=== PATIENT | male | born 1965 | race Caucasian/White ===

== ENCOUNTER 2016-12-11 23:25 | Emergency (ER) | payer MEDICARE, OTHER ==
[~2016-12-11] VITALS: Ht 185.4 cm; Wt 105.0 kg
[~2016-12-11 23:25] MED LIST: BACL10TA PO; DILA8TAB4 PO; HYDR50CA PO; PRIL20CA9 PO; ROPI2 PO; ZOLO100T PO; ZYPR2.5T2 PO
[2016-12-11 23:27] VITALS: BP 164/79; PULSE 109; RESP 20; TEMP 98.9; O2SAT 100
[2016-12-12 01:40] VITALS: BP 144/82; PULSE 95; RESP 18; O2SAT 99
[2016-12-12] MEDS ORDERED: SODIUM CHLOR 0.9% 1000 ML INJ 1,000 ML IV SCH (01:48)
[2016-12-12] MEDS ORDERED: DIPHENOXYLATE/ATROPINE 2.5 MG/0.025 MG TAB PO ONE (02:00)
[2016-12-12] MEDS ORDERED: MORPHINE SULFATE 8 MG/ML INJ IV PUSH ONE (02:00)
[2016-12-12] MEDS ORDERED: ONDANSETRON HCL 4 MG/2 ML VIAL IVP ONE (02:00)
[2016-12-12] MEDS ORDERED: PROM25TA5 PO (02:21)
--- NOTE | 2016-12-12 02:21 | PD ---
HPI Chief Complaint: GI Complaint Time Seen by Provider: 01:37 Travel History International Travel<30 days: No Contact w/Intl Traveler<30days: No Traveled to known affect area: No History of Present Illness HPI 51-year-old male arrives complaining of nausea vomiting diarrhea for 2 days. Any oral intake causes vomiting. 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 He has been unable tolerate his pain medications. He denies fever. He reports chills. PFSH Past Medical History Hx Anticoagulant Therapy: No Anxiety: Yes Depression: Yes Heart Rhythm Problems: No Cancer: Yes (t cell lymphoblastic lymphoma) Cardiac Catheterization: Yes Cardiovascular Problems: Yes (HEART LOOP) High Cholesterol: No Chemotherapy: Yes (2012) Chest Pain: Yes Congestive Heart Failure: Yes (DENIES) Cerebrovascular Accident: No Diabetes: No Diminished Hearing: No Gastrointestinal Disorders: Yes (GASTROPARESIS) GERD: Yes Genitourinary: Yes Implanted Vascular Access Dvce: Yes (POWER PORT RIGHT CHEST, OMYA PORT IN BRAIN ) Kidney Stones: Yes Medical other: Yes (bilateral hip avascular necrosis) Musculoskeletal: Yes Psychiatric: Yes (PTSD ) Respiratory: No Immunizations Current: Yes Sleep Apnea: Yes (CPAP 2 L PER M) PNEUMOCCOCAL Vaccine (Year): 2 Past Surgical History Abdominal Surgery: Yes (HERNIA REPAIR, BOTOX INJECTION IN THE PYLORUS) Body Medical Devices: OMAYA RESERVOIR,POWER Port-A-Cath RIGHT CHEST Cholecystectomy: Yes (2007) Coronary Artery Bypass Graft: No Hysterectomy: No Joint Replacement: Yes (C2-T6 ) Neurologic Surgery: Yes (POWER PORT, "OMAYA PORT" FOR INTRACRANIAL CHEMOTHERAPY ) Tonsillectomy: Yes Other Surgery: Yes (TUMOR ON THALMUS GLAND) Social History Alcohol Use: No Tobacco Use: Yes (1ppd) Substance Use: Yes (marijuana) Allergies-Medications (Allergen,Severity, Reaction): Coded Allergies: No Known Allergies (Verified , 12/11/16) Reported Meds & Prescriptions Reported Meds & Active Scripts Active Lomotil (Diphenoxylate-Atropine) 2.5-0.025 Mg Tab 1 Tab PO Q6H PRN Phenergan (Promethazine HCl) 25 Mg Tab 25 Mg PO Q8HR PRN Reported Baclofen 10 Mg Tab 10 Mg PO BID Zyprexa (Olanzapine) 2.5 Mg Tab 2.5 Mg PO BID Zoloft (Sertraline HCl) 100 Mg Tab 200 Mg PO DAILY Requip (Ropinirole HCl) 2 Mg Tab 2 Mg PO HS Prilosec (Omeprazole) 20 Mg Cap 20 Mg PO BID Hydroxyzine Pamoate 50 Mg Cap 50 Mg PO HS Dilaudid (Hydromorphone HCl) 8 Mg Tab 8 Mg PO DIRECTED Review of Systems Except as stated in HPI: all other systems reviewed are Neg General / Constitutional: Positive: Chills Gastrointestinal: Positive: Nausea, Vomiting, Diarrhea Physical Exam Narrative GENERAL: 51-year-old male pleasant, ambulates with a cane SKIN: Warm and dry. HEAD: Atraumatic. Normocephalic. EYES: Pupils equal and round. No scleral icterus. No injection or drainage. ENT: No nasal bleeding or discharge. Mucous membranes pink and moist. NECK: Trachea midline. No JVD. CARDIOVASCULAR: Regular rate and rhythm. No murmur appreciated. RESPIRATORY: No accessory muscle use. Clear to auscultation. Breath sounds equal bilaterally. GASTROINTESTINAL: Abdomen soft, non-tender, nondistended. Hepatic and splenic margins not palpable. MUSCULOSKELETAL: No obvious deformities. No clubbing. No cyanosis. No edema. NEUROLOGICAL: Awake and alert. No obvious cranial nerve deficits. Motor grossly within normal limits. Normal speech. PSYCHIATRIC: Appropriate mood and affect; insight and judgment normal. Data Data Last Documented VS Vital Signs Date Time Temp Pulse Resp B/P Pulse Ox O2 Delivery O2 Flow Rate FiO2 12/12/16 02:43 99 Room Air 12/12/16 01:40 95 18 144/82 12/11/16 23:27 98.9 Vital signs reviewed Orders Iv Access Insert/Monitor (12/12/16 01:48) Oximetry (12/12/16 01:48) Ondansetron Inj (Zofran Inj) (12/12/16 02:00) Sodium Chlor 0.9% 1000 Ml Inj (Ns 1000 M (12/12/16 01:48) Morphine Inj (Morphine Inj) (12/12/16 02:00) Diphenoxylate/Atropine Tab (Lomotil Tab) (12/12/16 02:00) MDM Medical Decision Making Medical Screen Exam Complete: Yes Emergency Medical Condition: Yes Medical Record Reviewed: Yes Differential Diagnosis Gastroenteritis, viral illness, dehydration, intractable vomiting, intractable nausea, chronic pain Narrative Course Patient presents with a history of nausea vomiting diarrhea. He is unable to tolerate his pain medication due to vomiting. He has received IV fluids and antiemetics his pain has been managed. We will discharge with antiemetics and lomotil. No vomiting observed in ER. One episode diarrhea. Diagnosis Primary Impression: Nausea vomiting and diarrhea Referrals: [facility] 2 days Additional Instructions: You have a choice when it comes to health care, and we are glad that you chose [facility]. Hopefully, we have met your expectations on today's visit. You are welcome to return to [facility] at any time, as we are committed to meeting the health care needs of our community. Med/Other Pt SpecificInfo: Prescription(s) given Scripts Diphenoxylate-Atropine (Lomotil)2.5-0.025 Mg Tab1 Tab PO Q6H PRN (DIARRHEA) #6 TAB Ref 0 Prov:Maldonado Rosenberg MD 12/12/16 Promethazine (Phenergan)25 Mg Tab25 Mg PO Q8HR PRN (Nausea/Vomiting) #15 TAB Ref 0 Prov:Maldonado Rosenberg MD 12/12/16 Disposition: 01 DISCHARGE HOME Condition: Stable Maldonado Rosenberg MD Dec 12, 2016 02:21
[2016-12-12] MEDS ORDERED: LOMO2.5T PO (02:42)
[2016-12-12 02:43] VITALS: O2SAT 99
== END 2016-12-12 02:52 | disposition home or self-care (01) ==
LOC: NEPE 23:25
DX: R11.2 Nausea with vomiting, unspecified (principal); R19.7 Diarrhea, unspecified; C83.50 Lymphoblastic (diffuse) lymphoma, unspecified site; M87.9 Osteonecrosis, unspecified; F17.200 Nicotine dependence, unspecified, uncomplicated; G47.30 Sleep apnea, unspecified; Z86.79 Personal history of other diseases of the circulatory system; Z87.19 Personal history of other diseases of the digestive system; Z87.448 Personal history of other diseases of urinary system; Z87.39 Personal history of other diseases of the musculoskeletal system and connective tissue; Z86.59 Personal history of other mental and behavioral disorders
CPT/HCPCS: 96361; 96374; 96375; 99283; J2270; J2405; J7030

== ENCOUNTER 2016-12-17 21:13 | Emergency (ER) | payer MEDICARE, OTHER ==
[~2016-12-17] VITALS: Ht 185.4 cm; Wt 115.0 kg
[~2016-12-17 21:13] MED LIST changes: +LOMO2.5T PO; +PROM25TA5 PO
[2016-12-17 21:16] VITALS: BP 129/68; PULSE 80; RESP 16; TEMP 97.9; O2SAT 97
[2016-12-17] MEDS ORDERED: hydrOXYzine HCL 50 MG/ML VIAL IM ONE (23:15)
[2016-12-17] MEDS ORDERED: HYDROmorphone HCL PF 1 MG/ML VIAL IM ONE (23:15)
--- NOTE | 2016-12-17 23:46 | PD ---
HPI Chief Complaint: Back/ Neck Pain or Injury Time Seen by Provider: 23:43 Travel History International Travel<30 days: No Contact w/Intl Traveler<30days: No Traveled to known affect area: No History of Present Illness HPI 51-year-old white male presents to emergency Department with complaints of worsening chronic left hip pain. He states that he has a history of avascular necrosis and is [facility] to get [facility]. He sees pain management and gets oral Dilaudid for chronic neck and back pain. He also gets cortisone shots in his hips. He states that the pain has gotten worse the last day or 2. He comes in for evaluation. He states that he normally gets a shot of Dilaudid which helps. He denies any acute injury. Pain is moderate to severe at times. PFSH Past Medical History Hx Anticoagulant Therapy: No Anxiety: Yes Depression: Yes Heart Rhythm Problems: No Cancer: Yes (t cell lymphoblastic lymphoma) Cardiac Catheterization: Yes Cardiovascular Problems: Yes (HEART LOOP) High Cholesterol: No Chemotherapy: Yes (2012) Chest Pain: Yes Congestive Heart Failure: Yes (DENIES) Cerebrovascular Accident: No Diabetes: No Diminished Hearing: No Gastrointestinal Disorders: Yes (GASTROPARESIS) GERD: Yes Genitourinary: Yes Implanted Vascular Access Dvce: Yes (POWER PORT RIGHT CHEST, OMYA PORT IN BRAIN ) Kidney Stones: Yes Musculoskeletal: Yes Psychiatric: Yes (PTSD ) Respiratory: No Immunizations Current: Yes Sleep Apnea: Yes (CPAP 2 L PER M) PNEUMOCCOCAL Vaccine (Year): 2 Past Surgical History Abdominal Surgery: Yes (HERNIA REPAIR, BOTOX INJECTION IN THE PYLORUS) Body Medical Devices: OMAYA RESERVOIR,POWER Port-A-Cath RIGHT CHEST Cholecystectomy: Yes (2007) Coronary Artery Bypass Graft: No Hysterectomy: No Joint Replacement: Yes (C2-T6 ) Neurologic Surgery: Yes (POWER PORT, "OMAYA PORT" FOR INTRACRANIAL CHEMOTHERAPY ) Tonsillectomy: Yes Other Surgery: Yes (TUMOR ON THALMUS GLAND) Social History Alcohol Use: No Tobacco Use: Yes (1ppd) Substance Use: Yes (marijuana) Allergies-Medications (Allergen,Severity, Reaction): Coded Allergies: No Known Allergies (Verified , 12/17/16) Reported Meds & Prescriptions Reported Meds & Active Scripts Active Lomotil (Diphenoxylate-Atropine) 2.5-0.025 Mg Tab 1 Tab PO Q6H PRN Phenergan (Promethazine HCl) 25 Mg Tab 25 Mg PO Q8HR PRN Reported Baclofen 10 Mg Tab 10 Mg PO BID Zyprexa (Olanzapine) 2.5 Mg Tab 2.5 Mg PO BID Zoloft (Sertraline HCl) 100 Mg Tab 200 Mg PO DAILY Requip (Ropinirole HCl) 2 Mg Tab 2 Mg PO HS Prilosec (Omeprazole) 20 Mg Cap 20 Mg PO BID Hydroxyzine Pamoate 50 Mg Cap 50 Mg PO HS Dilaudid (Hydromorphone HCl) 8 Mg Tab 8 Mg PO DIRECTED Review of Systems Except as stated in HPI: all other systems reviewed are Neg Physical Exam Narrative GENERAL: This is a well-nourished, well-developed patient, in no apparent distress. SKIN: No rashes, ecchymoses or lesions. Warm and dry. HEAD: Atraumatic. Normocephalic. EYES: PERRL, EOMI, no discharge or injection. No scleral icterus. EARS: Clear NOSE: Nasal turbinates appear normal. THROAT: Mucosa pink and moist. Airway patent. NECK: Trachea midline. supple, moves head freely. Chronic scar from multiple surgeries LUNGS: Clear to auscultation. CV: Regular in rhythm. ABDOMEN: Soft nontender. EXT: No clubbing cyanosis or edema. Patient complains of pain in the left groin and left hip. He has decreased active range of motion but has nearly full passive range of motion. No pain in the knee, ankle or foot. He has intact sensation. Good distal pulse. Data Data Last Documented VS Vital Signs Date Time Temp Pulse Resp B/P Pulse Ox O2 Delivery O2 Flow Rate FiO2 12/17/16 21:16 97.9 80 16 129/68 97 Room Air Orders Hydromorphone Pf Inj (Dilaudid Pf Inj) (12/17/16 23:15) Hydroxyzine Hcl Inj (Vistaril Inj) (12/17/16 23:15) MDM Medical Decision Making Medical Screen Exam Complete: Yes Emergency Medical Condition: Yes Medical Record Reviewed: Yes Differential Diagnosis Differential diagnoses: Acute, chronic hip pain, avascular necrosis Narrative Course Patient's given Dilaudid 1 mg IM and 50 g of Vistaril IM. This acute exacerbation of chronic left hip pain Diagnosis Primary Impression: acute exacerbation of chronic left hip pain Patient Instructions: Narcotic given in the ED, General Instructions Additional Instructions: Rest. [facility] Med/Other Pt SpecificInfo: No Change to Meds Disposition: 01 DISCHARGE HOME Condition: Stable Ky Neumann Dec 17, 2016 23:46
== END 2016-12-18 00:10 | disposition home or self-care (01) ==
LOC: NEPB 21:13
DX: M25.552 Pain in left hip (principal); G89.29 Other chronic pain; Z87.442 Personal history of urinary calculi; F43.10 Post-traumatic stress disorder, unspecified; G47.30 Sleep apnea, unspecified
CPT/HCPCS: 96372; 99283; J1170; J3410

== ENCOUNTER 2017-01-10 10:29 | Emergency (ER) | payer OTHER, MEDICARE ==
[2017-01-10 10:31] VITALS: BP 135/93; PULSE 74; RESP 20; TEMP 97.8; O2SAT 99
== END 2017-01-10 11:15 | disposition left against medical advice (07) ==
LOC: NED 10:29
DX: R68.89 Other general symptoms and signs (principal); W19.XXXA Unspecified fall, initial encounter; Y92.9 Unspecified place or not applicable; Y99.9 Unspecified external cause status
CPT/HCPCS: 99281

== ENCOUNTER 2017-02-06 22:56 | Emergency (ER) | payer MEDICARE, OTHER ==
[~2017-02-06] VITALS: Ht 185.4 cm; Wt 120.0 kg
[2017-02-06 23:02] VITALS: BP 139/86; PULSE 78; RESP 16; TEMP 98.7; O2SAT 97
[2017-02-07] MEDS ORDERED: hydrOXYzine HCL 50 MG/ML VIAL IM ONE (00:30)
[2017-02-07] MEDS ORDERED: HYDROmorphone HCL PF 1 MG/ML VIAL IM ONE (00:30)
--- NOTE | 2017-02-07 00:30 | PD ---
HPI Chief Complaint: Pain: Acute or Chronic Time Seen by Provider: 00:22 Travel History International Travel<30 days: No Contact w/Intl Traveler<30days: No Traveled to known affect area: No History of Present Illness HPI 51-year-old white male presents to emergency department for evaluation of acute exacerbation of chronic right hip pain. This is a patient well-known to myself from prior visits. The patient states that he tripped on an electrical cord earlier this evening twisting and having a near full. He is currently in pain management. He typically takes 8 mg of Dilaudid at a time. He also has a history of avascular necrosis and is awaiting hip replacement. He denies falling to the ground. He states the pain is moderate to severe. He states that the typically gets a shot of Dilaudid which alleviates his pain. History of chronic neck and back pain as well. PFSH Past Medical History Hx Anticoagulant Therapy: No Anxiety: Yes Depression: Yes Heart Rhythm Problems: No Cancer: Yes (t cell lymphoblastic lymphoma) Cardiac Catheterization: Yes Cardiovascular Problems: Yes (HEART LOOP) High Cholesterol: No Chemotherapy: Yes (2012) Chest Pain: Yes Congestive Heart Failure: Yes (DENIES) Cerebrovascular Accident: No Diabetes: No Diminished Hearing: No Gastrointestinal Disorders: Yes (GASTROPARESIS) GERD: Yes Genitourinary: Yes Implanted Vascular Access Dvce: Yes (POWER PORT RIGHT CHEST, OMYA PORT IN BRAIN ) Kidney Stones: Yes Musculoskeletal: Yes Psychiatric: Yes (PTSD ) Respiratory: No Immunizations Current: Yes Sleep Apnea: Yes (CPAP 2 L PER M) PNEUMOCCOCAL Vaccine (Year): 2 Past Surgical History Abdominal Surgery: Yes (HERNIA REPAIR, BOTOX INJECTION IN THE PYLORUS) Body Medical Devices: OMAYA RESERVOIR,POWER Port-A-Cath RIGHT CHEST Cholecystectomy: Yes (2007) Coronary Artery Bypass Graft: No Hysterectomy: No Joint Replacement: Yes (C2-T6 ) Neurologic Surgery: Yes (POWER PORT, "OMAYA PORT" FOR INTRACRANIAL CHEMOTHERAPY ) Tonsillectomy: Yes Other Surgery: Yes (TUMOR ON THALMUS GLAND) Family History Family Myocardial Infarction: Yes (GRANDMOTHER) Social History Alcohol Use: No Tobacco Use: Yes (1ppd) Substance Use: Yes (marijuana) Allergies-Medications (Allergen,Severity, Reaction): Coded Allergies: No Known Allergies (Verified , 02/06/17) Reported Meds & Prescriptions Reported Meds & Active Scripts Active Lomotil (Diphenoxylate-Atropine) 2.5-0.025 Mg Tab 1 Tab PO Q6H PRN Phenergan (Promethazine HCl) 25 Mg Tab 25 Mg PO Q8HR PRN Reported Baclofen 10 Mg Tab 10 Mg PO BID Zyprexa (Olanzapine) 2.5 Mg Tab 2.5 Mg PO BID Zoloft (Sertraline HCl) 100 Mg Tab 200 Mg PO DAILY Requip (Ropinirole HCl) 2 Mg Tab 2 Mg PO HS Prilosec (Omeprazole) 20 Mg Cap 20 Mg PO BID Hydroxyzine Pamoate 50 Mg Cap 50 Mg PO HS Dilaudid (Hydromorphone HCl) 8 Mg Tab 8 Mg PO DIRECTED Review of Systems Except as stated in HPI: all other systems reviewed are Neg General / Constitutional: No: Fever, Chills HENT: Positive: Neck Stiffness, Neck Pain (chronic) Cardiovascular: No: Chest Pain or Discomfort, Palpitations Respiratory: No: Cough Gastrointestinal: No: Abdominal Pain, Loss of Appetite Genitourinary: No: Frequency, Dysuria Musculoskeletal: Positive: Arthralgias, Limited ROM, Pain Physical Exam Narrative GENERAL: This is a well-nourished, well-developed patient, in no apparent distress. SKIN: No rashes, ecchymoses or lesions. Warm and dry. HEAD: Atraumatic. Normocephalic. EYES: PERRL, EOMI, no discharge or injection. No scleral icterus. EARS: Clear NOSE: Nasal turbinates appear normal. THROAT: Mucosa pink and moist. Airway patent. NECK: Trachea midline. supple, moves head freely. LUNGS: Clear to auscultation. CV: Regular in rhythm. ABDOMEN: Soft nontender. EXT: No clubbing cyanosis or edema. Patient complains of pain in the right hip. He has decreased range of motion due to pain. No erythema, warmth or swelling. He has intact sensation distally. Good dorsalis pedis pulses. Data Data Last Documented VS Vital Signs Date Time Temp Pulse Resp B/P Pulse Ox O2 Delivery O2 Flow Rate FiO2 02/06/17 23:02 98.7 78 16 139/86 97 Room Air Orders Hydromorphone Pf Inj (Dilaudid Pf Inj) (02/07/17 00:30) Hydroxyzine Hcl Inj (Vistaril Inj) (02/07/17 00:30) MDM Medical Decision Making Medical Screen Exam Complete: Yes Emergency Medical Condition: Yes Medical Record Reviewed: Yes Differential Diagnosis MDM: High Differential diagnoses: Fracture, sprain, strain, dislocation, contusion, neurovascular injury, acute exacerbation of chronic pain Narrative Course Patient has acute exacerbation of chronic hip pain. Patient's given Dilaudid 1 mg IM and Vistaril 50 g IM. Diagnosis Primary Impression: acute exacerbation of chronic right hip pain Patient Instructions: Narcotic given in the ED, General Instructions Additional Instructions: Rest. Contact your doctor in the morning regarding your exacerbation of chronic pain. Return to the ER for emergencies. Med/Other Pt SpecificInfo: No Meds Exist/No RX given Disposition: 01 DISCHARGE HOME Condition: Stable Ky Neumann February 07, 2017 00:30
[2017-02-07 00:56] VITALS: BP 132/78
== END 2017-02-07 01:03 | disposition home or self-care (01) ==
LOC: NEPD 22:56
DX: G89.29 Other chronic pain (principal); M25.551 Pain in right hip; F17.210 Nicotine dependence, cigarettes, uncomplicated; Z79.899 Other long term (current) drug therapy
CPT/HCPCS: 96372; 99283; J1170; J3410

== ENCOUNTER 2017-02-09 03:08 | Emergency (ER) | payer OTHER, MEDICARE ==
[~2017-02-09] VITALS: Ht 185.4 cm; Wt 120.0 kg
[2017-02-09 03:12] VITALS: BP 133/79; PULSE 66; RESP 16; TEMP 97.6; O2SAT 100
--- NOTE | 2017-02-09 03:27 | PD ---
HPI Chief Complaint: Pain: Acute or Chronic Time Seen by Provider: 03:26 Travel History International Travel<30 days: No Contact w/Intl Traveler<30days: No Traveled to known affect area: No History of Present Illness HPI 51-year-old male with long-standing history of right hip pain and lower back pain, and avascular necrosis of the right hip, presents to emergency department today for evaluation of persistent, exacerbation of pain. Patient states he was seen here couple days ago for his right lower back/hip pain after he "tweaked it." Patient was seen and evaluated and given IM Dilaudid. Patient does take oral Dilaudid 8 mg at a time as needed for pain. Patient denies any new injury. No focal deficits or weakness. Patient is already established with pain management. He has no other symptoms to report at this time. PFSH Past Medical History Hx Anticoagulant Therapy: No Anxiety: Yes Depression: Yes Heart Rhythm Problems: No Cancer: Yes (t cell lymphoblastic lymphoma) Cardiac Catheterization: Yes Cardiovascular Problems: Yes (HEART LOOP) High Cholesterol: No Chemotherapy: Yes (2012) Chest Pain: Yes Congestive Heart Failure: Yes (DENIES) Cerebrovascular Accident: No Diabetes: No Diminished Hearing: No Gastrointestinal Disorders: Yes (GASTROPARESIS) GERD: Yes Genitourinary: Yes Implanted Vascular Access Dvce: Yes (POWER PORT RIGHT CHEST, OMYA PORT IN BRAIN ) Kidney Stones: Yes Musculoskeletal: Yes Psychiatric: Yes (PTSD ) Respiratory: No Immunizations Current: Yes Sleep Apnea: Yes (CPAP 2 L PER M) PNEUMOCCOCAL Vaccine (Year): 2 Past Surgical History Abdominal Surgery: Yes (HERNIA REPAIR, BOTOX INJECTION IN THE PYLORUS) Body Medical Devices: OMAYA RESERVOIR,POWER Port-A-Cath RIGHT CHEST Cholecystectomy: Yes (2007) Coronary Artery Bypass Graft: No Hysterectomy: No Joint Replacement: Yes (C2-T6 ) Neurologic Surgery: Yes (POWER PORT, "OMAYA PORT" FOR INTRACRANIAL CHEMOTHERAPY ) Tonsillectomy: Yes Other Surgery: Yes (TUMOR ON THALMUS GLAND) Social History Alcohol Use: No Tobacco Use: Yes (1ppd) Substance Use: Yes (marijuana) Allergies-Medications (Allergen,Severity, Reaction): Coded Allergies: No Known Allergies (Verified , 02/09/17) Reported Meds & Prescriptions Reported Meds & Active Scripts Active Lomotil (Diphenoxylate-Atropine) 2.5-0.025 Mg Tab 1 Tab PO Q6H PRN Phenergan (Promethazine HCl) 25 Mg Tab 25 Mg PO Q8HR PRN Reported Baclofen 10 Mg Tab 10 Mg PO BID Zyprexa (Olanzapine) 2.5 Mg Tab 2.5 Mg PO BID Zoloft (Sertraline HCl) 100 Mg Tab 200 Mg PO DAILY Requip (Ropinirole HCl) 2 Mg Tab 2 Mg PO HS Prilosec (Omeprazole) 20 Mg Cap 20 Mg PO BID Hydroxyzine Pamoate 50 Mg Cap 50 Mg PO HS Dilaudid (Hydromorphone HCl) 8 Mg Tab 8 Mg PO DIRECTED Review of Systems Except as stated in HPI: all other systems reviewed are Neg Physical Exam Narrative GENERAL: Well-nourished, well-developed male patient, ambulatory with cane assistance, in no acute distress SKIN: Focused skin assessment warm/dry. HEAD: Normocephalic. EYES: No scleral icterus. No injection or drainage. NECK: Supple, trachea midline. No JVD or lymphadenopathy. CARDIOVASCULAR: Regular rate and rhythm without murmurs, gallops, or rubs. RESPIRATORY: Breath sounds equal bilaterally. No accessory muscle use. GASTROINTESTINAL: Abdomen soft, non-tender, nondistended. MUSCULOSKELETAL: No cyanosis, or edema. Patient reports tenderness with flexion of the right hip however patient is able to demonstrate full range of motion. Distal pulses are palpable. Cap refills normal limits. BACK: Nontender without obvious deformity. No CVA tenderness. Data Data Last Documented VS Vital Signs Date Time Temp Pulse Resp B/P Pulse Ox O2 Delivery O2 Flow Rate FiO2 02/09/17 03:12 97.6 66 16 133/79 100 Orders Dexamethasone Inj (Decadron Inj) (02/09/17 03:30) Ketorolac Inj (Toradol Inj) (02/09/17 03:30) [facility] Medical Decision Making Medical Screen Exam Complete: Yes Emergency Medical Condition: Yes Medical Record Reviewed: Yes Differential Diagnosis Exacerbation of chronic hip pain versus muscle strain versus spasm versus sprain Narrative Course 51-year-old male presents to emergency department for evaluation of left hip pain. Patient is requesting Dilaudid by name stating that he has gotten injections of this in the past. Patient is given IM Toradol and Decadron. He is advised to follow-up with his scene painter. He agrees to return immediately with any acute worsening of symptoms. Diagnosis Primary Impression: Chronic hip pain Qualified Code: M25.551 - Chronic hip pain, right Referrals: Primary Care Physician Patient Instructions: General Instructions, Hip Pain (ED) Additional Instructions: Continue pain medication as already prescribed Follow-up with a primary care provider Return immediately with any acute worsening of symptoms Med/Other Pt SpecificInfo: No Change to Meds Disposition: 01 DISCHARGE HOME Condition: Stable Krystyna Keating February 09, 2017 03:27
[2017-02-09] MEDS ORDERED: KETOROLAC TROMETHAMINE 60 MG/2 ML (IM) VIAL IM ONE (03:30)
[2017-02-09] MEDS ORDERED: DEXAMETHASONE SOD PHOS 4 MG/ML VIAL IM ONE (03:30)
== END 2017-02-09 04:19 | disposition home or self-care (01) ==
LOC: NEPD 03:08
DX: G89.29 Other chronic pain (principal); M25.551 Pain in right hip; Z79.899 Other long term (current) drug therapy
CPT/HCPCS: 96372; 99283; J1100; J1885

== ENCOUNTER 2017-03-15 07:27 | Emergency (ER) | payer OTHER, MEDICARE ==
[~2017-03-15] VITALS: Ht 185.4 cm; Wt 118.0 kg
[2017-03-15 07:29] VITALS: BP 147/75; PULSE 80; RESP 20; TEMP 97.7; O2SAT 100
--- NOTE | 2017-03-15 07:42 | PD ---
HPI Chief Complaint: Pain: Acute or Chronic Time Seen by Provider: 07:40 Travel History International Travel<30 days: No Contact w/Intl Traveler<30days: No Traveled to known affect area: No History of Present Illness HPI 51-year-old male established with the [facility], presents the emergency Department with complaints of increased right hip pain with history of avascular necrosis. Patient was seen twice last month for similar complaints. At one visit he was given Dilaudid IM and Vistaril IM, at the second visit he was given Decadron IM and Toradol IM. Patient is established with the pain management group. Patient currently takes 8 mg of oral Dilaudid times a day, as well as baclofen. He states it flared up yesterday. He is here seeking pain medication. He states he is having increased muscle spasms in his back. He has a history of a fused neck as well as the avascular necrosis. He has no known drug allergies. PFSH Past Medical History Hx Anticoagulant Therapy: No Anxiety: Yes Depression: Yes Heart Rhythm Problems: No Cancer: Yes (t cell lymphoblastic lymphoma) Cardiac Catheterization: Yes Cardiovascular Problems: Yes (LOOP RECORDER) High Cholesterol: No Chemotherapy: Yes (5 YEARS AGO REMISSION SINCE 2012) Chest Pain: Yes Congestive Heart Failure: Yes (DENIES) Cerebrovascular Accident: No Diabetes: No Diminished Hearing: No Gastrointestinal Disorders: Yes (GASTROPARESIS) GERD: Yes Genitourinary: Yes Implanted Vascular Access Dvce: Yes (POWER PORT RIGHT CHEST, OMYA PORT IN BRAIN ) Kidney Stones: Yes Musculoskeletal: Yes Psychiatric: Yes (PTSD ) Respiratory: No Immunizations Current: Yes Sleep Apnea: Yes (CPAP 2 L PER M) PNEUMOCCOCAL Vaccine (Year): 2 Past Surgical History Abdominal Surgery: Yes (HERNIA REPAIR, BOTOX INJECTION IN THE PYLORUS) Body Medical Devices: OMAYA RESERVOIR,POWER Port-A-Cath RIGHT CHEST Cholecystectomy: Yes (2007) Coronary Artery Bypass Graft: No Hysterectomy: No Joint Replacement: Yes (C2-T6 ) Neurologic Surgery: Yes (POWER PORT, "OMAYA PORT" FOR INTRACRANIAL CHEMOTHERAPY ) Tonsillectomy: Yes Other Surgery: Yes (TUMOR ON THALMUS GLAND) Social History Alcohol Use: No Tobacco Use: Yes (1ppd) Substance Use: Yes (marijuana) Allergies-Medications (Allergen,Severity, Reaction): Coded Allergies: No Known Allergies (Verified , 02/09/17) Reported Meds & Prescriptions Reported Meds & Active Scripts Active Lomotil (Diphenoxylate-Atropine) 2.5-0.025 Mg Tab 1 Tab PO Q6H PRN Phenergan (Promethazine HCl) 25 Mg Tab 25 Mg PO Q8HR PRN Reported Baclofen 10 Mg Tab 10 Mg PO BID Zyprexa (Olanzapine) 2.5 Mg Tab 2.5 Mg PO BID Zoloft (Sertraline HCl) 100 Mg Tab 200 Mg PO DAILY Requip (Ropinirole HCl) 2 Mg Tab 2 Mg PO HS Prilosec (Omeprazole) 20 Mg Cap 20 Mg PO BID Hydroxyzine Pamoate 50 Mg Cap 50 Mg PO HS Dilaudid (Hydromorphone HCl) 8 Mg Tab 8 Mg PO DIRECTED Review of Systems Except as stated in HPI: all other systems reviewed are Neg General / Constitutional: No: Fever Eyes: No: Visual changes HENT: No: Headaches Cardiovascular: No: Chest Pain or Discomfort Respiratory: No: Shortness of Breath Gastrointestinal: No: Abdominal Pain Genitourinary: No: Dysuria Musculoskeletal: Positive: Arthralgias, Limited ROM, Pain (see history present illness.) Skin: No Rash Neurologic: No: Weakness Psychiatric: No: Depression Endocrine: No: Polydipsia Hematologic/Lymphatic: No: Easy Bruising Physical Exam Narrative GENERAL: Patient appears in no acute distress. SKIN: Warm and dry. Normal color. Normal turgor. HEAD: Atraumatic. Normocephalic. EYES: Pupils equal and round. No scleral icterus. No injection or drainage. ENT: No nasal bleeding or discharge. Mucous membranes pink and moist. NECK: Trachea midline. No JVD. CARDIOVASCULAR: Regular rate and rhythm. RESPIRATORY: No accessory muscle use. Clear to auscultation. Breath sounds equal bilaterally. MUSCULOSKELETAL: Extremities without clubbing, cyanosis, or edema. No obvious deformities. Patient has decreased range of motion in the right hip consistent with history. Patient has normal pulses distally. NEUROLOGICAL: Awake and alert. No obvious cranial nerve deficits. Motor grossly within normal limits. Five out of 5 muscle strength in the arms and legs. Normal speech. PSYCHIATRIC: Appropriate mood and affect; insight and judgment normal. Data Data Last Documented VS Vital Signs Date Time Temp Pulse Resp B/P Pulse Ox O2 Delivery O2 Flow Rate FiO2 03/15/17 07:29 97.7 80 20 147/75 100 Room Air MDM Medical Decision Making Medical Screen Exam Complete: Yes Emergency Medical Condition: Yes Medical Record Reviewed: Yes Differential Diagnosis Acute on chronic right hip pain. History of avascular necrosis. Drug-seeking behavior. Narrative Course Patient is medically stable at time of exam. Patient is driving himself. Patient will be given Decadron 10 mg IM as well as 60 mg Toradol IM. Patient is given a prescription for Norflex 100 mg twice a day #10. Patient is to follow-up with his pain specialist on Friday or return to the ED as needed. Diagnosis Primary Impression: Chronic hip pain Qualified Code: M25.551 - Chronic hip pain, right Additional Impressions: Chronic neck pain Chronic back pain Qualified Code: M54.5 - Chronic bilateral low back pain without sciatica Referrals: Pain Management Patient Instructions: General Instructions, Muscle Spasm (ED) Additional Instructions: Patient is medically stable at time of exam. Patient is driving himself. Patient will be given Decadron 10 mg IM as well as 60 mg Toradol IM. Patient is given a prescription for Norflex 100 mg twice a day #10. Patient is to follow-up with his pain specialist on Friday or return to the ED as needed. Med/Other Pt SpecificInfo: Prescription(s) given Disposition: 01 DISCHARGE HOME Condition: Stable Alphonso Arriaga Mar 15, 2017 07:42
[2017-03-15] MEDS ORDERED: ORPH100T99 PO (07:50)
[2017-03-15] MEDS ORDERED: DEXAMETHASONE SOD PHOS 20 MG/5 ML VIAL IM ONE (08:00)
[2017-03-15] MEDS ORDERED: KETOROLAC TROMETHAMINE 60 MG/2 ML (IM) VIAL IM ONE (08:00)
== END 2017-03-15 08:19 | disposition home or self-care (01) ==
LOC: NEPK 07:27
DX: M25.551 Pain in right hip (principal); M54.2 Cervicalgia; M54.5 Low back pain; G89.29 Other chronic pain; K21.9 Gastro-esophageal reflux disease without esophagitis; Z87.442 Personal history of urinary calculi; F43.10 Post-traumatic stress disorder, unspecified; G47.30 Sleep apnea, unspecified; F17.210 Nicotine dependence, cigarettes, uncomplicated
CPT/HCPCS: 96372; 99284; J1100; J1885

== ENCOUNTER 2017-04-20 23:16 | Emergency (ER) | payer OTHER, MEDICARE ==
[~2017-04-20 23:16] MED LIST changes: +ORPH100T99 PO
[2017-04-20 23:18] VITALS: BP 140/67; PULSE 84; RESP 16; TEMP 98.2; O2SAT 97
--- NOTE | 2017-04-21 00:11 | PD ---
HPI Chief Complaint: Hip pain Time Seen by Provider: 23:48 Travel History International Travel<30 days: No Contact w/Intl Traveler<30days: No Traveled to known affect area: No History of Present Illness HPI 51yo M with PMH of chronic neck and back pain, chronic bilateral hip pain with history of AVN presents to the ED requesting pain medication. State he twisted his right hip today and has pain in right hip that radiates to right inner thigh. Pain is worst with movement. Denies any fever, fall, trauma, chest pain , sob, n/v, abdominal pain, focal weakness or numbness. Pt states he ran out of his dilaudid 8mg PO and usually takes that for pain. Pt has established pain management physician. He states he usually gets dilaudid and wants it in injection form. I reviewed his records and he has been here multiple times for this before. PFSH Past Medical History Hx Anticoagulant Therapy: No Anxiety: Yes Depression: Yes Heart Rhythm Problems: No Cancer: Yes (t cell lymphoblastic lymphoma) Cardiac Catheterization: Yes Cardiovascular Problems: Yes (LOOP RECORDER) High Cholesterol: No Chemotherapy: Yes (5 YEARS AGO REMISSION SINCE 2012) Chest Pain: Yes Congestive Heart Failure: Yes (DENIES) Cerebrovascular Accident: No Diabetes: No Diminished Hearing: No Gastrointestinal Disorders: Yes (GASTROPARESIS) GERD: Yes Genitourinary: Yes Implanted Vascular Access Dvce: Yes ( OMYA PORT IN BRAIN) Kidney Stones: Yes Musculoskeletal: Yes Psychiatric: Yes (PTSD ) Respiratory: No Immunizations Current: Yes Sleep Apnea: Yes (CPAP 2 L PER M) PNEUMOCCOCAL Vaccine (Year): 2 Past Surgical History Abdominal Surgery: Yes (HERNIA REPAIR, BOTOX INJECTION IN THE PYLORUS) Body Medical Devices: OMAYA RESERVOIR,POWER Port-A-Cath RIGHT CHEST Cholecystectomy: Yes (2007) Coronary Artery Bypass Graft: No Hysterectomy: No Joint Replacement: Yes (C2-T6 ) Neurologic Surgery: Yes (POWER PORT, "OMAYA PORT" FOR INTRACRANIAL CHEMOTHERAPY ) Tonsillectomy: Yes Other Surgery: Yes (TUMOR ON THALMUS GLAND) Social History Alcohol Use: No Tobacco Use: Yes (1ppd) Substance Use: Yes (marijuana occasionally) Allergies-Medications (Allergen,Severity, Reaction): Coded Allergies: No Known Allergies (Verified , 04/20/17) Reported Meds & Prescriptions Reported Meds & Active Scripts Active Orphenadrine CR (Orphenadrine Citrate) 100 Mg Tab 100 Mg PO Q12HR Reported Omeprazole 20 Mg Tab 20 Mg PO DAILY Baclofen 10 Mg Tab 10 Mg PO BID Zyprexa (Olanzapine) 2.5 Mg Tab 2.5 Mg PO BID Zoloft (Sertraline HCl) 100 Mg Tab 200 Mg PO DAILY Requip (Ropinirole HCl) 2 Mg Tab 2 Mg PO HS Hydroxyzine Pamoate 50 Mg Cap 50 Mg PO HS Dilaudid (Hydromorphone HCl) 8 Mg Tab 8 Mg PO DIRECTED Review of Systems Except as stated in HPI: all other systems reviewed are Neg Physical Exam Narrative GENERAL: 51yo M not in distress. SKIN: Focused skin assessment warm/dry. HEAD: Atraumatic. Normocephalic. EYES: Pupils equal and round. No scleral icterus. No injection or drainage. ENT: No nasal bleeding or discharge. Mucous membranes pink and moist. NECK: Trachea midline. No JVD. CARDIOVASCULAR: Regular rate and rhythm. No murmur appreciated. RESPIRATORY: No accessory muscle use. Clear to auscultation. Breath sounds equal bilaterally. GASTROINTESTINAL: Abdomen soft, non-tender, nondistended. MUSCULOSKELETAL: Right hip: No signs of ecchymoses, erythema. FROM and pain is worst with abduction of right hip. NEUROLOGICAL: Awake and alert. No obvious cranial nerve deficits. Motor grossly within normal limits. Muscle strength 5/5 in all extremities. Sensation intact. Normal speech. PSYCHIATRIC: Appropriate mood and affect; insight and judgment normal. Data Data Last Documented VS Vital Signs Date Time Temp Pulse Resp B/P Pulse Ox O2 Delivery O2 Flow Rate FiO2 04/20/17 23:18 98.2 84 16 140/67 97 Room Air Orders Ketorolac Inj (Toradol Inj) (04/21/17 00:15) MDM Medical Decision Making Medical Screen Exam Complete: Yes Emergency Medical Condition: Yes Differential Diagnosis Chronic hip pain vs. malingering vs. drug seeking Narrative Course 51yo M with chronic hip pain here requesting dilaudid. Pt has been coming frequently for this. No new trauma. Pt given toradol IM. I was informed by the nurse that pt had left before my reevaluation. Diagnosis Primary Impression: Chronic hip pain Qualified Code: M25.551 - Chronic hip pain, right Patient Instructions: General Instructions Departure Forms: Tests/Procedures Additional Instructions: Please return to the ED if symptoms worsen. Med/Other Pt SpecificInfo: No Change to Meds Disposition: 01 DISCHARGE HOME Condition: Stable Mere Tamayo DO Apr 21, 2017 00:11
[2017-04-21] MEDS ORDERED: OMEP20TA PO (00:12)
[2017-04-21] MEDS ORDERED: KETOROLAC TROMETHAMINE 60 MG/2 ML (IM) VIAL IM ONE (00:15)
== END 2017-04-21 02:32 | disposition home or self-care (01) ==
LOC: NEPC 23:16
DX: M25.551 Pain in right hip (principal); G89.29 Other chronic pain; Z76.0 Encounter for issue of repeat prescription; F43.10 Post-traumatic stress disorder, unspecified; K21.9 Gastro-esophageal reflux disease without esophagitis; Z87.442 Personal history of urinary calculi; F17.210 Nicotine dependence, cigarettes, uncomplicated; X50.0XXA Overexertion from strenuous movement or load, initial encounter; Y93.9 Activity, unspecified; Y92.9 Unspecified place or not applicable
CPT/HCPCS: 96372; 99284; J1885

== ENCOUNTER 2017-08-24 21:36 | Emergency (ER) | payer OTHER, MEDICARE ==
[~2017-08-24] VITALS: Ht 185.4 cm; Wt 120.0 kg
[~2017-08-24 21:36] MED LIST changes: -LOMO2.5T PO; +OMEP20TA93 PO; +ORPH100T2 PO; -ORPH100T99 PO; -PRIL20CA9 PO; -PROM25TA5 PO
[2017-08-24 21:39] VITALS: BP 147/73; PULSE 82; RESP 16; TEMP 97.6; O2SAT 96
[2017-08-24] MEDS ORDERED: DILA2TAB4 PO (22:29)
[2017-08-24] MEDS ORDERED: ZOFR4TAB3 SL (22:31)
--- NOTE | 2017-08-24 22:31 | PD ---
HPI Chief Complaint: Fall Time Seen by Provider: 22:10 Travel History International Travel<30 days: No Contact w/Intl Traveler<30days: No Traveled to known affect area: No History of Present Illness HPI The patient's 51 years old and has chronic back pain. 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 He reports finishing off the remainder of his monthly pain prescription yesterday. He takes Dilaudid for pain. PFSH Past Medical History Hx Anticoagulant Therapy: No Anxiety: Yes (PTSD) Depression: Yes Heart Rhythm Problems: No Cancer: Yes (t cell lymphoblastic lymphoma) Cardiac Catheterization: Yes Cardiovascular Problems: Yes (LOOP RECORDER) High Cholesterol: No Chemotherapy: Yes (5 YEARS AGO REMISSION SINCE 2012) Chest Pain: Yes Congestive Heart Failure: Yes (DENIES) Cerebrovascular Accident: No Diabetes: No Diminished Hearing: No Gastrointestinal Disorders: Yes (GASTROPARESIS) GERD: Yes Genitourinary: Yes Heparin Induced Thrombocytopen: No Implanted Vascular Access Dvce: Yes ( OMYA PORT IN BRAIN) Kidney Stones: Yes Musculoskeletal: Yes Psychiatric: Yes (PTSD ) Respiratory: No Immunizations Current: Yes Sleep Apnea: Yes (CPAP 2 L PER M) Tetanus Vaccination: < 5 Years Influenza Vaccination: Yes PNEUMOCCOCAL Vaccine (Year): 2 Past Surgical History Abdominal Surgery: Yes (HERNIA REPAIR, BOTOX INJECTION IN THE PYLORUS) Body Medical Devices: OMAYA RESERVOIR,POWER Port-A-Cath RIGHT CHEST Cholecystectomy: Yes (2007) Coronary Artery Bypass Graft: No Hysterectomy: No Joint Replacement: Yes (C2-T6 ) Neurologic Surgery: Yes (POWER PORT, "OMAYA PORT" FOR INTRACRANIAL CHEMOTHERAPY ) Tonsillectomy: Yes Other Surgery: Yes (TUMOR ON THALMUS GLAND) Family History Family Myocardial Infarction: Yes (GRANDMOTHER) Social History Alcohol Use: No Tobacco Use: Yes (1ppd) Substance Use: Yes (marijuana occasionally) Allergies-Medications (Allergen,Severity, Reaction): Coded Allergies: No Known Allergies (Verified Adverse Reaction, Unknown, 08/24/17) Reported Meds & Prescriptions Reported Meds & Active Scripts Active Orphenadrine CR (Orphenadrine Citrate) 100 Mg Tab 100 Mg PO Q12HR Reported Omeprazole 20 Mg Tab 20 Mg PO DAILY Baclofen 10 Mg Tab 10 Mg PO BID Zyprexa (Olanzapine) 2.5 Mg Tab 2.5 Mg PO BID Zoloft (Sertraline HCl) 100 Mg Tab 200 Mg PO DAILY Requip (Ropinirole HCl) 2 Mg Tab 2 Mg PO HS Hydroxyzine Pamoate 50 Mg Cap 50 Mg PO HS Dilaudid (Hydromorphone HCl) 8 Mg Tab 8 Mg PO DIRECTED Review of Systems Except as stated in HPI: all other systems reviewed are Neg General / Constitutional: No: Fever Musculoskeletal: Positive: Pain Physical Exam Narrative GENERAL: 51 yo M, mild distress 2/2 pain SKIN: Warm and dry. HEAD: Atraumatic. Normocephalic. EYES: Pupils equal and round. No scleral icterus. No injection or drainage. ENT: No nasal bleeding or discharge. Mucous membranes pink and moist. NECK: Trachea midline. No JVD. CARDIOVASCULAR: Regular rate and rhythm. RESPIRATORY: No accessory muscle use. Clear to auscultation. Breath sounds equal bilaterally. GASTROINTESTINAL: Abdomen soft, non-tender, nondistended. Hepatic and splenic margins not palpable. MUSCULOSKELETAL: Extremities without clubbing, cyanosis, or edema. No obvious deformities. minimal tenderness about the parathoracic musculature. NEUROLOGICAL: NO ankle clonus. Pt ambulatory. 2+ DTRs at patellae tendon bilaterally. PSYCHIATRIC: Appropriate mood and affect; insight and judgment normal. Data Data Last Documented VS Vital Signs Date Time Temp Pulse Resp B/P (MAP) Pulse Ox O2 Delivery O2 Flow Rate FiO2 08/24/17 21:39 97.6 82 16 147/73 (97) 96 Room Air VS reviewed MDM Medical Decision Making Medical Screen Exam Complete: Yes Emergency Medical Condition: Yes Medical Record Reviewed: Yes Differential Diagnosis fracture, chronic pain, exacerbation of chronic pain Narrative Course pain controlled pt to fill script on Friday as is normally done Diagnosis Primary Impression: Chronic back pain Qualified Codes: M54.6 - Pain in thoracic spine; G89.29 - Other chronic pain Additional Impressions: Chronic neck pain Acute exacerbation of chronic low back pain Referrals: Pain Management 2 days Med/Other Pt SpecificInfo: Prescription(s) given Scripts Ondansetron Odt (Zofran Odt) 4 Mg Tab 4 MG SL Q8HR Y for Nausea/Vomiting, #10 TAB 0 Refills Prov: Maldonado Rosenberg MD 08/24/17 Hydromorphone (Dilaudid) 2 Mg Tab 2 MG PO Q4H Y for Pain Management, #6 TAB 0 Refills Prov: Maldonado Rosenberg MD 08/24/17 Disposition: 01 DISCHARGE HOME Condition: Stable Maldonado Rosenberg MD Aug 24, 2017 22:31
[2017-08-24] MEDS ORDERED: ONDANSETRON ODT 4 MG TAB PO ONE (22:45)
[2017-08-24] MEDS ORDERED: HYDROmorphone HCL 4 MG TAB PO ONE (22:45)
== END 2017-08-24 22:54 | disposition home or self-care (01) ==
LOC: NEPD 21:36
DX: M54.6 Pain in thoracic spine (principal); G89.29 Other chronic pain; M54.2 Cervicalgia; M54.5 Low back pain; Z72.0 Tobacco use
CPT/HCPCS: 99283

== ENCOUNTER 2017-12-28 22:24 | Emergency (ER) | payer OTHER, MEDICARE ==
[~2017-12-28] VITALS: Ht 185.4 cm; Wt 115.0 kg
[~2017-12-28 22:24] MED LIST changes: +DILA2TAB4 PO; +ZOFR4TAB3 SL
[2017-12-28 22:57] VITALS: RESP 20
--- NOTE | 2017-12-28 23:59 | PD ---
HPI Chief Complaint: Back/ Neck Pain or Injury Time Seen by Provider: 23:56 Travel History International Travel<30 days: No Contact w/Intl Traveler<30days: No Traveled to known affect area: No History of Present Illness HPI 52 yo M c/o acute on chronic bilateral hip pain and neck pain. Oral Dilaudid was not beneficial. The patient has been moving which requires much more lifting and maneuvering than typical. Timing constant. Severity moderate to severe. No numbness tingling weakness. No falls. No change bowel bladder habit. PFSH Past Medical History Hx Anticoagulant Therapy: No Anxiety: Yes (PTSD) Depression: Yes Heart Rhythm Problems: No Cancer: Yes (t cell lymphoblastic lymphoma) Cardiac Catheterization: Yes Cardiovascular Problems: Yes (LOOP RECORDER) High Cholesterol: No Chemotherapy: Yes (5 YEARS AGO REMISSION SINCE 2012) Chest Pain: Yes Congestive Heart Failure: Yes (DENIES) Cerebrovascular Accident: No Diabetes: No Diminished Hearing: No Gastrointestinal Disorders: Yes (GASTROPARESIS) GERD: Yes Genitourinary: Yes Heparin Induced Thrombocytopen: No Implanted Vascular Access Dvce: Yes ( OMYA PORT IN BRAIN) Kidney Stones: Yes Musculoskeletal: Yes Psychiatric: Yes (PTSD ) Respiratory: No Immunizations Current: Yes Sleep Apnea: Yes (CPAP 2 L PER M) Tetanus Vaccination: < 5 Years Influenza Vaccination: No PNEUMOCCOCAL Vaccine (Year): 2 Past Surgical History Abdominal Surgery: Yes (HERNIA REPAIR, BOTOX INJECTION IN THE PYLORUS) Body Medical Devices: OMAYA RESERVOIR,POWER Port-A-Cath RIGHT CHEST Cholecystectomy: Yes (2007) Coronary Artery Bypass Graft: No Hysterectomy: No Joint Replacement: Yes (C2-T6 ) Neurologic Surgery: Yes (POWER PORT, "OMAYA PORT" FOR INTRACRANIAL CHEMOTHERAPY ) Tonsillectomy: Yes Other Surgery: Yes (TUMOR ON THALMUS GLAND) Family History Family Myocardial Infarction: Yes (GRANDMOTHER) Social History Alcohol Use: No Tobacco Use: Yes (1ppd) Substance Use: Yes (marijuana occasionally) Allergies-Medications (Allergen,Severity, Reaction): Coded Allergies: No Known Allergies (Verified Adverse Reaction, Unknown, 12/28/17) Reported Meds & Prescriptions Reported Meds & Active Scripts Active Zofran Odt (Ondansetron Odt) 4 Mg Tab 4 Mg SL Q8HR PRN Dilaudid (Hydromorphone HCl) 2 Mg Tab 2 Mg PO Q4H PRN Orphenadrine CR (Orphenadrine Citrate) 100 Mg Tab 100 Mg PO Q12HR Reported Omeprazole 20 Mg Tab 20 Mg PO DAILY Baclofen 10 Mg Tab 10 Mg PO BID Zyprexa (Olanzapine) 2.5 Mg Tab 2.5 Mg PO BID Zoloft (Sertraline HCl) 100 Mg Tab 200 Mg PO DAILY Requip (Ropinirole HCl) 2 Mg Tab 2 Mg PO HS Hydroxyzine Pamoate 50 Mg Cap 50 Mg PO HS Dilaudid (Hydromorphone HCl) 8 Mg Tab 8 Mg PO DIRECTED Review of Systems General / Constitutional: No: Fever Eyes: No: Photophobia HENT: No: Rhinitis Cardiovascular: No: Irregular Rhythm Respiratory: No: Wheezing Physical Exam Narrative GENERAL: 52 yo M, WNWD HEAD: Normocephalic. EYES: No scleral icterus. No injection or drainage. NECK: Supple, trachea midline. No JVD or lymphadenopathy. Surgcial scar midline back. GASTROINTESTINAL: Abdomen soft, non-tender, nondistended. MUSCULOSKELETAL: No cyanosis, or edema. No pain with axial load. BACK: Nontender without obvious deformity. No CVA tenderness. Data Data Last Documented VS Vital Signs Date Time Temp Pulse Resp B/P (MAP) Pulse Ox O2 Delivery O2 Flow Rate FiO2 12/28/17 22:57 20 Orders Orders Hydromorphone Pf Inj (Dilaudid Pf Inj) (12/29/17 00:00) Ketorolac Inj (Toradol Inj) (12/29/17 00:00) Ed Discharge Order (12/29/17 00:00) MDM Medical Decision Making Medical Screen Exam Complete: Yes Emergency Medical Condition: Yes Medical Record Reviewed: Yes Differential Diagnosis cervical spine fracture, osteomyelitis, chronic hips pain Narrative Course pain controlled follow up with pain management Diagnosis Primary Impression: Chronic hip pain Qualified Codes: M25.559 - Pain in unspecified hip; G89.29 - Other chronic pain Additional Impressions: Chronic back pain Qualified Codes: M54.5 - Low back pain; G89.29 - Other chronic pain Tobacco abuse Med/Other Pt SpecificInfo: No Change to Meds Disposition: 01 DISCHARGE HOME Condition: Stable Maldonado Rosenberg MD Dec 28, 2017 23:59
[2017-12-29] MEDS ORDERED: KETOROLAC TROMETHAMINE 60 MG/2 ML (IM) VIAL IM ONE
[2017-12-29] MEDS ORDERED: HYDROmorphone HCL PF 1 MG/ML VIAL SQ ONE
[2017-12-29] MEDS ORDERED: HYDROmorphone HCL PF 2 MG/ML VIAL SQ ONE (00:30)
== END 2017-12-29 01:02 | disposition home or self-care (01) ==
LOC: NEPD 22:24
DX: M25.552 Pain in left hip (principal); M25.551 Pain in right hip; M54.5 Low back pain; G89.29 Other chronic pain; F43.10 Post-traumatic stress disorder, unspecified; F32.9 Major depressive disorder, single episode, unspecified; F17.210 Nicotine dependence, cigarettes, uncomplicated; Z79.899 Other long term (current) drug therapy
CPT/HCPCS: 96372; 99283; J1170; J1885